=== PATIENT | female | born 1960 | race Caucasian/White ===

== ENCOUNTER → 2019-04-25 | Outpatient (CLI) | payer MEDICARE, OTHER ==
[~2019-04-25] MED LIST: ALBU90OI6 INH; ATOR20 PO; BUDE6HFA INH; CITA20 PO; CLON1 PO; ESTR2 PO; HYDACE10B PO; INSDET100 SQ; INSUASPI SC; LIRA0.6P; LIRA0.6P SC; LOSA50 PO; METF500 PO; RANI150 PO; TRESIBA FL100 UNIT/1 SQ
[2019-04-26 14:07] LABS: HPV 16 Negative (Negative); HPV 18 Negative (Negative); HPV OTHER HR TYPES Negative (Negative)
== END | disposition home or self-care (01) ==
LOC: LAB 11:43 → LAB SHORT 11:43
PROVIDERS: Nurse Practitioner Women's Health
DX: Z12.72 Encounter for screening for malignant neoplasm of vagina (principal)
CPT/HCPCS: 87624; G0123